=== PATIENT | male | born 1965 | race Asian ===

== ENCOUNTER 2017-09-18 00:22 | Emergency (ER) | payer SELFPAY ==
[~2017-09-18] VITALS: Ht 172.7 cm; Wt 81.6 kg
[~2017-09-18 00:22] MED LIST: NKM
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
[2017-09-18] MEDS ORDERED: IBUPROFEN600 MG ORAL (03:22)
[2017-09-18 03:30] VITALS: BP 143/89
[2017-09-18 05:46] VITALS: BP_SYST 133; BP_SYST 143; BP_DIAS 82; BP_DIAS 89
--- NOTE | 2017-09-18 10:10 | Diagnostic Imaging Report ---
Indication: Left upper rib pain Technique: PA chest and left rib series. Comparison: None Findings: There is no radiographically evident displaced rib fracture. The left lung is clear. Cardiac silhouette is prominent. Atherosclerotic changes are present. The thoracic aorta is tortuous. Impression: No acute cardiopulmonary disease.
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
== END 2017-09-18 05:54 | disposition home or self-care (01) ==
LOC: EDBD 00:22 → EMR 01:00
DX: S00.03XA Contusion of scalp, initial encounter (principal); S00.01XA Abrasion of scalp, initial encounter; S20.212A Contusion of left front wall of thorax, initial encounter; Y04.2XXA Assault by strike against or bumped into by another person, initial encounter; Y92.414 Local residential or business street as the place of occurrence of the external cause; F10.129 Alcohol abuse with intoxication, unspecified; R51 Headache
CPT/HCPCS: 70450; 99284